=== PATIENT | female | born 2000 ===

== ENCOUNTER 2021-05-17 19:34 | Emergency (ER) | payer OTHER ==
[~2021-05-17] VITALS: Ht 167.6 cm; Wt 56.7 kg
[2021-05-17] MEDS ORDERED: DOLOGESIC 500-1 EACH PO (22:02)
== END 2021-05-17 23:10 | disposition home or self-care (01) ==
LOC: ER 19:34 → EMR PED 19:34
DX: M54.50 Low back pain, unspecified (principal)

== ENCOUNTER 2021-06-22 07:35 | Outpatient (CLI) | payer OTHER ==
[~2021-06-22 07:35] MED LIST: DOLOGESIC 500-1 EACH PO
== END 2021-06-22 07:43 | disposition home or self-care (01) ==
LOC: MRI 07:35
PROVIDERS: ATTEND Obstetrics & Gynecology
DX: N83.291 Other ovarian cyst, right side (principal)
CPT/HCPCS: 72196